=== PATIENT | male | born 1950 | race Caucasian/White ===

== ENCOUNTER → 2020-07-25 | Outpatient (CLI) | payer MEDICARE ==
[~2020-07-25] MED LIST: IOHEXOL 350 MG/ML 100ML INFUS..BTL IV ONE
== END | disposition home or self-care (01) ==
LOC: RAH 13:11
PROVIDERS: ATTEND Internal Medicine Critical Care Medicine
DX: R59.0 Localized enlarged lymph nodes (principal); R05 Cough
CPT/HCPCS: 70491; 71260; Q9967